=== PATIENT | female | born 1975 | race Caucasian/White ===

== ENCOUNTER 2021-04-29 02:40 | Emergency (ER) | payer SELFPAY ==
[~2021-04-29] VITALS: Ht 157.4 cm; Wt 55.0 kg
--- OUTSIDE RECORDS SUMMARY | 2021-04-29 02:46 | XMS REPORT | Clinical Summary ---
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
--- NOTE | 2021-04-29 03:05 | ED Abdominal Pain ---
General Chief Complaint: Abdominal/GI Problems Stated Complaint: ABD PAIN Source of Information: Patient, Family Exam Limitations: No Limitations History of Present Illness Date Seen by Provider: Apr 29, 2021 Time Seen by Provider: 02:50 Initial Comments Patient is a 45-year-old female who presents to the emergency department today with a chief complaint of severe epigastric abdominal pain. Patient states she had onset of similar symptoms on Monday of this last weekend. She states she thought she had "a flu bug". She had a little diarrhea associated with it for a couple of days. She states as the week progressed since Monday she has been eating nothing but a bland diet has had no real nausea or vomiting since Monday. She states she thought today she was actually getting better but tonight the pain which she rated at a "9" woke her from sleep. She states she has been night unable to find a position of comfort. Nothing really makes the pain any better, nothing makes it any worse. She did try some Tylenol this evening 3 times, and 10 mg Valium without any relief. She states on the way to the hospital she felt a little nauseated. She has had previous cholecystectomy, she is uncertain if she had gallstones. 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 She is not currently on any PPIs. No fevers or chills, productive cough or URI symptoms. She did have a little burning with urination but attributes this to being dehydrated as she noted that her urine was quite concentrated this morning. She is Covid vaccinated. She does not drink alcohol on daily basis. 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 All other review of systems reviewed and negative except as stated. Timing/Duration: 1 Week Severity/Quality: Severe, Aching Location: Epigastric Radiation: No Radiation Activities at Onset: Sleeping Associated Symptoms: Nausea/Vomiting (nausea without vomiting), Other (diarrhea yesterday, non black non bloody) Allergies and Home Medications Allergies Coded Allergies: No Known Drug Allergies (Unverified , 04/29/21) Patient Home Medication List Home Medication List Reviewed: Yes Ondansetron (Ondansetron Odt) 4 Mg Tab.rapdis, 4 MG PO Q8H PRN for nausea Prescribed by: CHA MCCALL on 04/29/21 0431 Oxycodone HCl (Oxycodone HCl) 5 Mg Tablet, 5 MG PO Q6H PRN for severe abdominal pain Prescribed by: CHA MCCALL on 04/29/21431 Potassium Chloride (Potassium Chloride) 10 Meq Tab.er.prt, 10 MEQ PO TID Prescribed by: CHA MCCLAL on 04/29/21430 Review of Systems Review of Systems Constitutional: see HPI EENTM: No Symptoms Reported Respiratory: No Symptoms Reported Cardiovascular: No Symptoms Reported Gastrointestinal: Abdominal Pain (epigastric), Diarrhea (yesterday), Nausea Genitourinary: Burning (this morning) Musculoskeletal: no symptoms reported Skin: no symptoms reported Psychiatric/Neurological: No Symptoms Reported All Other Systems Reviewed Negative Unless Noted: Yes Physical Exam Vital Signs Vital Signs - First Documented 04/29/21 02:48 Temp 36.3 Pulse 92 Resp 18 B/P (MAP) 141/92 (108) Pulse Ox 99 O2 Delivery Room Air Capillary Refill : Height/Weight/BMI Height: '" Weight: lbs. oz. kg; BMI Method: General Appearance: WD/WN, no apparent distress HEENT: PERRL/EOMI (no kaundice/scleral icterus) Progress/Results/Core Measures Results/Orders Lab Results Laboratory Tests Test 04/29/21 03:03 04/29/21 03:38 Range/Units White Blood Count 9.9 4.3-11.0 10^3/uL Red Blood Count 4.65 3.80-5.11 10^6/uL Hemoglobin 14.7 11.5-16.0 g/dL Hematocrit 43 35-52 % Mean Corpuscular Volume 92 80-99 fL Mean Corpuscular Hemoglobin 32 25-34 pg Mean Corpuscular Hemoglobin Concent 34 32-36 g/dL Red Cell Distribution Width 11.4 10.0-14.5 % Platelet Count 253 130-400 10^3/uL Mean Platelet Volume 9.5 9.0-12.2 fL Immature Granulocyte % (Auto) 0 % Neutrophils (%) (Auto) 90 H 42-75 % Lymphocytes (%) (Auto) 5 L 12-44 % Monocytes (%) (Auto) 4 0-12 % Eosinophils (%) (Auto) 1 0-10 % Basophils (%) (Auto) 0 0-10 % Neutrophils # (Auto) 8.9 H 1.8-7.8 10^3/uL Lymphocytes # (Auto) 0.5 L 1.0-4.0 10^3/uL Monocytes # (Auto) 0.4 0.0-1.0 10^3/uL Eosinophils # (Auto) 0.1 0.0-0.3 10^3/uL Basophils # (Auto) 0.0 0.0-0.1 10^3/uL Immature Granulocyte # (Auto) 0.0 0.0-0.1 10^3/uL Neutrophils % (Manual) 81 % Lymphocytes % (Manual) 7 % Monocytes % (Manual) 4 % Eosinophils % (Manual) 0 % Basophils % (Manual) 0 % Band Neutrophils 8 % Blood Morphology Comment NORMAL Sodium Level 139 135-145 MMOL/L Potassium Level 2.8 L 3.6-5.0 MMOL/L Chloride Level 105 98-107 MMOL/L Carbon Dioxide Level 22 21-32 MMOL/L Anion Gap 12 5-14 MMOL/L Blood Urea Nitrogen 10 7-18 MG/DL Creatinine 0.73 0.60-1.30 MG/DL Estimat Glomerular Filtration Rate 86 BUN/Creatinine Ratio 14 Glucose Level 114 H 70-105 MG/DL Calcium Level 9.2 8.5-10.1 MG/DL Corrected Calcium 9.1 8.5-10.1 MG/DL Total Bilirubin 1.0 0.1-1.0 MG/DL Aspartate Amino Transf (AST/SGOT) 420 H 5-34 U/L Alanine Aminotransferase (ALT/SGPT) 259 H 0-55 U/L Alkaline Phosphatase 185 H 40-136 U/L C-Reactive Protein High Sensitivity 0.49 0.00-0.50 MG/DL Total Protein 6.9 6.4-8.2 GM/DL Albumin 4.1 3.2-4.5 GM/DL Lipase 50 8-78 U/L My Orders Orders - CHA MCCALL MD Ed Iv/Invasive Line Start (04/29/21 02:58) Cbc With Automated Diff (04/29/21 02:58) Comprehensive Metabolic Panel (04/29/21 02:58) Lipase (04/29/21 02:58) Hs C Reactive Protein (04/29/21 02:58) Ct Abdomen/Pelvis W (04/29/21 02:58) Ketorolac Injection (Toradol Injection) (04/29/21 03:15) Ns Iv 1000 Ml (Sodium Chloride 0.9%) (04/29/21 03:15) Manual Differential (04/29/21 03:03) Hepatitis Panel Acute (04/29/21 03:32) Iohexol Injection (Omnipaque 350 Mg/Ml 1 (04/29/21 03:45) Received Contrast (Hold Metformin- Contr (04/29/21 03:45) Sodium Chloride Flush (Catheter Flush Sy (04/29/21 03:45) Ns (Ivpb) (Sodium Chloride 0.9% Ivpb Bag (04/29/21 03:45) Oxycodone Immediate Rel Tablet (Oxyir Ta (04/29/21 04:45) Potassium Chloride (Tablet) (K Dur Table (04/29/21 04:45) Rx-Ondansetron Po (Rx-Zofran Po) (04/29/21 04:32) Medications Given in ED Current Medications Medications Dose Ordered Sig/Evens Route Start Time Stop Time Status Last Admin Dose Admin Iohexol 100 ml ONCE ONCE IV 04/29/21 03:45 04/29/21 03:46 DC 04/29/21 03:40 75 ML Ketorolac Tromethamine 15 mg ONCE ONCE IVP 04/29/21 03:15 04/29/21 03:16 DC 04/29/21 03:11 15 MG Sodium Chloride 10 ml NEEDED PRN IV 04/29/21 03:45 04/29/21 03:40 10 ML Sodium Chloride 100 ml ONCE ONCE IV 04/29/21 03:45 04/29/21 03:46 DC 04/29/21 03:40 80 ML Vital Signs/I&O 04/29/21 02:48 Temp 36.3 Pulse 92 Resp 18 B/P (MAP) 141/92 (108) Pulse Ox 99 O2 Delivery Room Air Admisison Planning May Need Admission (Planning): 03:38 Progress Progress Note : Time: 03:38 Progress Note Patient states that she feels much better after IV Toradol. IV fluids are running, she has been the CAT scan at this point. She has mild leukocytosis with left shift of neutrophils of 90%. Total white blood cell count is within normal limits. Liver functions are significantly elevated with a normal lipase. Normal CRP. CT read is pending. Potassium is low at 2.8 I will probably go ahead and give her some supplemental potassium. Will discuss with the hospitalist service. [address] Denney, hospitalist service. If able to eat and drink, hold down fluids she recommends follow up with PCP for repeating LFT's and oral potassium replacement 10meq for a couple of days with meals. Patient looks MUCH better after IV toradol. VSS. reviewed labs with patient and her . WIll send home with instructions for OTC NSAIDS and with Rx nausea meds and potassium, WIll go ahead and give a rx for oxycodone (something without tylenol) for pain that would increase. A dose of oral potassium here before discharge. Return precautions given (should she have worse pain, fever, start turning yellow) as well as followup w ith PCP. All questions are sought and answered. Diagnostic Imaging Diagonstic Imaging: CT Plain Films/CT/US/NM/MRI: abdomen Comments CT Abdomen and Pelvis with IV contrast Stat Rad report - negative for acute pathology Departure Impression Primary Impression: Abdominal pain Qualified Codes: R10.13 - Epigastric pain Additional Impressions: Acute hepatitis Hypokalemia Disposition: HOME, SELF-CARE Condition: Stable Departure-Patient Inst. Decision time for Depature: 04:22 Referrals: LOGAN HAGEN DO (PCP/Family) Primary Care Physician Patient Instructions: Abdominal Pain, Adult ED Add. Discharge Instructions: Drink plenty of fludis to stay well hydrated. Take the oxycodone 5mg every 6-8 hours as needed for severe abdominal pain. Otherwise Ibuprofen 600mg (3 OTC tablets) every 6 hours with food for pain,. Potassium replacement 10meq 3 times a day with food for 2 days. Call your primary care doctor today for a follow up appointment early next week. Return to the Emergency Department for any worsening pain, fever, skin turning yellow, persistent vomiting, or any other emergent concerning symptoms. Scripts Potassium Chloride (Potassium Chloride) 10 Meq Tab.er.prt 10 MEQ PO TID for 2 Days, #6 EACH Prov: CHA MCCALL MD 04/29/21 Ondansetron (Ondansetron Odt) 4 Mg Tab.rapdis 4 MG PO Q8H PRN for nausea, #20 TAB Prov: CHA MCCALL MD 04/29/21 Oxycodone HCl (Oxycodone HCl) 5 Mg Tablet 5 MG PO Q6H PRN for severe abdominal pain, #10 TAB Prov: CHA MCCALL MD 04/29/21 CHA MCCALL MD Apr 29, 2021 03:05
[2021-04-29 03:08] LABS: BASOPHILS % (AUTO) 0 % (0-10); EOSINOPHILS # (AUTO) 0.1 10^3/uL (0.0-0.3); EOSINOPHILS % (AUTO) 1 % (0-10); HEMATOCRIT 43 % (35-52); HEMOGLOBIN 14.7 g/dL (11.5-16.0); LYMPHOCYTES # (AUTO) 0.5 10^3/uL (1.0-4.0); LYMPHOCYTES % (AUTO) 5 % (12-44); MEAN CORPUSCULAR HEMOGLOBIN 32 pg (25-34); MEAN CORPUSCULAR HGB CONC 34 g/dL (32-36); MEAN CORPUSCULAR VOLUME 92 fL (80-99); MEAN PLATELET VOLUME 9.5 fL (9.0-12.2); MONOCYTES # (AUTO) 0.4 10^3/uL (0.0-1.0); MONOCYTES % (AUTO) 4 % (0-12); NEUTROPHILS # (AUTO) 8.9 10^3/uL (1.8-7.8); NEUTROPHILS % (AUTO) 90 % (42-75); PLATELET COUNT 253 10^3/uL (130-400); WHITE BLOOD COUNT 9.9 10^3/uL (4.3-11.0)
[2021-04-29] MEDS ORDERED: KETOROLAC 30 MG/ML VIAL IVP ONE (03:15)
[2021-04-29] MEDS ORDERED: NS IV 1000 ML 1,000 ML IV SCH (03:15)
[2021-04-29 03:19] LABS: ALBUMIN 4.1 GM/DL (3.2-4.5); POTASSIUM 2.8 MMOL/L (3.6-5.0)
[2021-04-29 03:20] LABS: CALCIUM 9.2 MG/DL (8.5-10.1)
[2021-04-29 03:21] LABS: TOTAL PROTEIN 6.9 GM/DL (6.4-8.2)
[2021-04-29 03:25] LABS: CREATININE SERUM 0.73 MG/DL (0.60-1.30)
[2021-04-29 03:39] LABS: BAND NEUTROPHILS 8 %; BASOPHILS % (MANUAL) 0 %; EOSINOPHILS % (MANUAL) 0 %; LYMPHOCYTES % (MANUAL) 7 %; MONOCYTES % (MANUAL) 4 %; NEUTROPHILS % (MANUAL) 81 %; RBC MORPH NORMAL
[2021-04-29] MEDS ORDERED: NS 100 ML (IVPB) BAG IV ONE (03:45)
[2021-04-29] MEDS ORDERED: IOHEXOL 350 MG/ML 100 ML (OMNIPAQUE 350) VIAL IV ONE (03:45)
[2021-04-29] MEDS ORDERED: HOLD METFORMIN - RECEIVED CONTRAST 20 ML VIAL IV SCH (03:45)
[2021-04-29] MEDS ORDERED: CATHETER FLUSH 10 ML SYR IV PRN (03:45)
[2021-04-29] MEDS ORDERED: POTA10TA36 PO ×2 (04:27→04:31)
[2021-04-29] MEDS ORDERED: ONDA4TAB11 PO ×2 (04:27→04:31)
[2021-04-29] MEDS ORDERED: OXYC5TAB PO ×2 (04:27→04:31)
[2021-04-29] MEDS ORDERED: RX-ONDANSETRON 4 MG ODT (ZOFRAN) PPK #4 PO STA (04:32)
[2021-04-29] MEDS ORDERED: KCL 20 MEQ TAB (K-DUR) PO ONE (04:45)
[2021-04-29 04:47] VITALS: BP 127/79
--- NOTE | 2021-04-29 06:09 | Diagnostic Imaging Report ---
PROCEDURE: CT abdomen and pelvis with contrast. TECHNIQUE: Multiple contiguous axial images were obtained through the abdomen and pelvis after administration of intravenous contrast. Auto Exposure Controls were utilized during the CT exam to meet ALARA standards for radiation dose reduction. All CT scans use one or more of the following dose optimizing techniques: automated exposure control, MA and/or KvP adjustment based on patient size and exam type or iterative reconstruction. INDICATION: Severe epigastric abdominal pain. COMPARISON: None available. FINDINGS: There is mild subsegmental dependent atelectasis in both lower lobes. Visualized heart is normal in size. The liver, spleen, pancreas and adrenal glands are unremarkable. The patient is status post cholecystectomy. There is mild prominence of the central intrahepatic biliary ducts and common bile duct, physiologic postcholecystectomy. There is no pancreatic ductal dilatation. The kidneys are symmetric in size and demonstrate normal enhancement. There is no renal calculus or hydronephrosis on either side. Subcentimeter foci of hypodensity are too small to characterize but likely represent cysts. No suspicious renal mass. The opacified ureters are normal. The stomach and duodenum are unremarkable. The small bowel and colon are normal in course and caliber, without evidence of wall thickening or obstruction. There is liquid stool noted in the ascending colon and proximal transverse colon. The appendix is not visualized. There are no secondary signs of acute appendicitis. No pneumoperitoneum, abdominal free fluid or loculated collection. The bladder is normal. The uterus is not seen and presumably surgically absent. No suspicious adnexal mass or pelvic free fluid. No lymphadenopathy is appreciated. The aorta is not aneurysmal. There are no findings to suggest venous thrombosis. Abdominal wall is unremarkable. No acute osseous abnormality is identified. IMPRESSION: There is liquid stool noted in the ascending and proximal transverse colon, a nonspecific finding which can be seen in diarrheal illness. There is no bowel wall thickening to suggest colitis and no evidence of obstruction. Mild biliary prominence is favored to be related to prior cholecystectomy. Otherwise, no acute abdominal or pelvic pathology. Findings are in agreement with initial teleradiology report. Dictated by: Dictated on workstation # [id number]
[2021-04-29 23:40] LABS: HEPATITIS C ANTIBODY C Non-Reactive (Non-Reactive)
== END 2021-04-29 04:47 | disposition home or self-care (01) ==
LOC: ER 02:43
DX: R10.13 Epigastric pain (principal); B17.9 Acute viral hepatitis, unspecified; E87.6 Hypokalemia
CPT/HCPCS: 36415; 74177; 80053; 80074; 83690; 85007; 85027; 86141